=== PATIENT | female | born 1955 | race Caucasian/White ===

== ENCOUNTER 2016-10-31 11:04 | Emergency (ER) | payer BC ==
[~2016-10-31] VITALS: Ht 160 cm; Wt 112.4 kg
[~2016-10-31 11:04] MED LIST: CHOL100010 PO; MULT-190 PO; MULT-506 PO; PRN10125 PO
[2016-10-31 11:10] VITALS: TEMP 36.8; Ht 160 cm; Wt 112.4 kg
[2016-10-31] MEDS ORDERED: MoRPHine SULFATE 4 MG/ML 1 ML CARP\\VIAL IM STA (11:34)
--- NOTE | 2016-10-31 11:43 | EMERGENCY ROOM VISIT NOTE ---
History First contact with patient: 11:25 Chief Complaint: NECK PAIN Stated Complaint: NECK PAIN History of Present Illness The patient is a 61 year old female who presents to the Emergency Room with complaints of neck pain. The patient states that she has a history of neck pain. She states she typically sees a chiropractor with improvement. She states that 2 days ago she went to the chiropractor to have her neck adjusted. She states that since then she has had pain. She states that she feel she had a bad adjustment and needs to be adjusted again. She reports pain in the neck with radiation to the right side of the neck which does not extend distally past the shoulder. She denies any numbness, tingling or weakness. She denies any blurry vision or difficulty with speech. She denies any pain in her chest, trouble breathing. She denies any other symptoms. She denies any falls or injuries. Review of Systems A 10 system review of systems was completed with positives and pertinent negatives listed in the HPI. Past Medical/Surgical History Medical Problems: (1) Hypertension Surgical Problems: (1) Post-operative state Social History Smoking Status: Never Smoker Marital Status: Housing Status: lives with family Current/Historical Medications Scheduled Cholecalciferol (Vitamin D), 20,000 INTER.UNIT PO QAM Lisinopril/Hctz (Prinzide 10-12.5MG *), 1 TAB PO QPM Multivitamin (Multivitamin), 1 TAB PO QAM Allergies Coded Allergies: Aspartame (Verified Allergy, Intermediate, ANAPHYLAXIS, 10/31/16) migraines Atorvastatin (Unverified Adverse Reaction, Unknown, MUSCLE ACHES, 10/31/16) Lactose Intolerance (GI) (Unverified Adverse Reaction, Unknown, GI UPSET, 10/31/16) Physical Exam Vital Signs Date Time Temp Pulse Resp B/P Pulse Ox O2 Delivery O2 Flow Rate FiO2 10/31/16 12:09 95 18 181/89 98 10/31/16 11:10 36.8 97 18 185/95 97 Room Air Physical Exam VITALS: Vitals are noted on the nurse's note and reviewed by myself. Vital signs stable. The patient is afebrile. GENERAL: This is a 61-year-old female, in no acute distress, nondiaphoretic, well-developed well-nourished. SKIN: The skin was without rashes, erythema, edema, or bruising. There is no tenting of the skin. Capillary reflex less than 2 seconds. HEAD: Normocephalic atraumatic. EARS: The external ears are normal in appearance. EYES: Pupils equal round and reactive to light and accommodation. Conjunctivae without injection, sclerae without icterus. Extraocular movements intact. NOSE: Patent, turbinates without inflammation or discharge. MOUTH: Mucous membranes moist. Tonsils are not enlarged. Pharynx without erythema or exudate. Uvula midline. Airway patent. Tongue does not deviate. NECK: Supple without nuchal rigidity. No lymphadenopathy. There is tenderness to palpation of the cervical spine. There is tenderness to palpation of the right paraspinous muscles. There is pain with rotation of the neck. CARDIAC: Regular rate and rhythm. No rubs, murmurs or gallops. LUNGS: Clear to auscultation bilaterally without wheezes, rales or rhonchi. No retractions or accessory muscle use. MUSCULOSKELETAL: No muscle atrophy, erythema, or edema noted. Full range of motion without joint tenderness in all extremities. No tenderness to palpation. Normal gait. Strength 5/5 throughout. NEURO: Patient was alert and oriented to person place and time. Deep tendon reflexes 2+ in the upper extremities bilaterally. No focal neurological deficits. Medical Decision & Procedures Medications Administered Medications (Trade) Dose Ordered Sig/Rizwana Route Start Time Stop Time Status Last Admin Dose Admin Morphine Sulfate (MoRPHine SULFATE INJ) 4 mg NOW STAT IM 10/31/16 11:34 10/31/16 11:37 DC 10/31/16 11:42 4 MG ED Course The patient was seen and examined. Previous visits were reviewed. She presents with right-sided posterior neck pain with radiation just to the shoulder. She does not have any neurologic deficit on exam or by history. She does not have any severe headache, blurry vision, trouble with speech or signs or symptoms suggestive of stroke. She did have a chiropractic adjustment 2 days ago. She states it seemed to make her neck pain worse. She did not have any new falls or injuries. I do not feel plain films be of significant benefit at this time. She was given 4 mg IM morphine. She refused a prescription for pain medication. She should follow-up with orthopedics and/or a chiropractor tomorrow. She should return to the ER with any worsening symptoms. Medical Decision DIFFERENTIAL DIAGNOSIS: Cervical strain, cervical spondylosis, cervical discogenic pain, thoracic outlet syndrome, cervical radiculopathy, herpes zoster , cervical disc herniation, bulging, meningitis, among others. [place] Drug Monitoring Program Search Results: patient reviewed within database, no issues identified Impression Primary Impression: Neck pain Departure Information Dispostion Home / Self-Care Condition GOOD Referrals Aj Antonio M.D. (PCP) David StraussD.O. Forms HOME CARE DOCUMENTATION FORM, IMPORTANT VISIT INFORMATION, WORK / SCHOOL INSTRUCTIONS Patient Instructions ED Neck Pain No Trauma, My [facility] Additional Instructions Contact orthopedics and/or your chiropractor first thing in the morning for further evaluation and management Return if any numbness, tingling, weakness, severe headache, blurry vision, slurred speech generalized worsening symptoms
[2016-10-31] MEDS ORDERED: OXYC-57 PO (11:56)
[2016-10-31 12:09] VITALS: BP 181/89; PULSE 95; O2SAT 98
== END 2016-10-31 12:11 | disposition home or self-care (01) ==
LOC: C.EDB 11:07 → C.EDD 12:11
DX: M54.2 Cervicalgia (principal); I10 Essential (primary) hypertension; Z79.899 Other long term (current) drug therapy